=== PATIENT | male | born 1975 | race Caucasian/White ===

== ENCOUNTER 2025-07-30 03:05 | Emergency (ER) | payer OTHER ==
[~2025-07-30] VITALS: Ht 167.6 cm; Wt 72.7 kg
[2025-07-30 03:22] VITALS: BP 168/113; PULSE 86; RESP 14; TEMP 97.3; O2SAT 100
== END 2025-07-30 04:05 | disposition left against medical advice (07) ==
LOC: EMS 03:20
DX: R51.9 Headache, unspecified (principal); Z53.21 Procedure and treatment not carried out due to patient leaving prior to being seen by health care provider
CPT/HCPCS: 99281; Z7502